=== PATIENT | female | born 1995 ===

== ENCOUNTER 2024-07-20 16:58 | Emergency (ER) | payer OTHER, MEDICAID, SELFPAY ==
--- NOTE | ~2024-07-20 | XR_ITS ---
EXAMINATION: XR KNEE, RIGHT CLINICAL INFORMATION: Knee pain. COMPARISON: None available. TECHNIQUE: 4 views of the right knee (AP, lateral, and bilateral oblique views). FINDINGS: No fracture or dislocation of the right knee. No lytic or sclerotic osseous lesions. No cortical erosions. The joint space is well-preserved. No radiopaque intra-articular bodies. No evidence of significant joint effusion. No focal soft tissue swelling. No radiopaque foreign bodies. XR/XR knee RT 4V IMPRESSION: No evidence of acute fracture or dislocation of the right knee. Electronically signed by: Thang Martinez DO 07/20/2024 07:46 PM EDT
[2024-07-20 18:16] VITALS: BP 138/73; PULSE 80; RESP 16; TEMP 36.4; O2SAT 97; BMI 42.9
--- NOTE | 2024-07-20 18:18 | ED.GENADULT ---
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 was walking on a wet floor at work 2 days ago slipped since then complaining of pain in the right knee especially on ambulation no swelling noticed no other injury Related Data Previous Rx's ?Medication ?Instructions ?Recorded ibuprofen 600 mg tablet 600 mg PO Q6H PRN fever or pain 07/21/24 #30 tabs Allergies Allergy/AdvReac Type Severity Reaction Status Date / Time No Known Allergies Allergy Verified 07/20/24 18:18 Review of Systems Review of Systems: Yes all other systems are reviewed and are negative Physical Exam ED Vital Signs: Vital Signs - 24 hr 07/20/24 18:16 Temperature 97.5 F Pulse Rate 80 Respiratory Rate 16 Blood Pressure 138/73 Pulse Oximetry 97 Oxygen Delivery Method Room Air BMI result Body Mass Index 42.9 Appearance: Alert. Oriented X3. No acute distress. Obese Neck: Normal inspection. Neck supple. CVS: Normal heart rate and rhythm. Pulses normal. Respiratory: No respiratory distress. Equal air entry bilateral, Abdomen: Soft and nontender. Bowel sounds are present, no mass palpable, no CVA tenderness Skin: Skin warm and dry. Normal skin color. Normal skin turgor. Extremities: Right knee diffuse tenderness no joint line tenderness no effusion Harshad sign anterior drawer sign negative Neuro: Oriented X 3. No motor deficit. Course Course Course Narrative: RME, this is a rapid medical exam performed by Cruzito Mishra please refer to primary provider for complete H&P- 29 year old female presents for evaluation of right knee pain after a fall 2.5 days ago. Plan for x-rays, the patient is ambulatory with a limp Medical Decision Making Medical Decision Making MDM Narrative: Patient with right knee pain likely ligament injury unlikely meniscal or cruciate ligament injury no significant joint effusion x-ray negative will discharge patient home on ibuprofen advised to use Jacob wrap for support Independent Interpretation I performed an independent interpretation of an: Plain X-Ray Interpretation: Negative Radiology Impression Discussion of test interpretation with radiology: I have reviewed the radiologist's reading. Radiologist Impression: Negative Discharge Plan Discharge Clinical Impression: Right knee sprain Patient Disposition: Home, Self-Care Instructions: Knee Sprain (ED) Additional Instructions: Rest your right knee Use Jacob wrap for support Avoid going upstairs or downstairs Ibuprofen for pain Follow with your PCP if pain continues more than 2 weeks/increased swelling of the knee Prescriptions: New ibuprofen 600 mg tablet 600 mg PO Q6H PRN (Reason: fever or pain) Qty: 30 0RF Stand Alone Forms: Work/School Release
[2024-07-21 00:19] VITALS: BP 122/80; PULSE 80; RESP 16; TEMP 37; O2SAT 100
[2024-07-21] MEDS: Ibuprofen 600 MG TABLET PO (00:30)
[2024-07-21 00:51] VITALS: BP 122/80; PULSE 80; RESP 16; TEMP 37; O2SAT 100
== END 2024-07-21 00:52 | disposition home or self-care (01) ==
PROVIDERS: Emergency Provider Internal Medicine
DX: S83.91XA Sprain of unspecified site of right knee, initial encounter (principal); W01.0XXA Fall on same level from slipping, tripping and stumbling without subsequent striking against object, initial encounter; Y93.89 Activity, other specified; Y92.129 Unspecified place in nursing home as the place of occurrence of the external cause; Y99.0 Civilian activity done for income or pay
CPT/HCPCS: 73564; 99283; 99284